=== PATIENT | female | born 1935 | race Caucasian/White ===

== ENCOUNTER 2018-04-04 15:49 | Emergency (ER) | payer MEDICARE ==
[~2018-04-04] VITALS: Ht 167.6 cm; Wt 65.3 kg
[~2018-04-04 15:49] MED LIST: AUGMENTIN 875-1 EAC1 ORAL; NORCO 5-325 TA1 EACH ORAL; PERIDEX 0.12% O15 ML ORAL
[2018-04-04 16:00] VITALS: BP 156/99
[2018-04-04] MEDS ORDERED: Tetanus/Diptheria/Pertussis Vaccine 0.5ml Syr IM ONE (16:30)
[2018-04-04] MEDS ORDERED: Bacitracin Oint UD TOPIC ONE (16:30)
[2018-04-04] MEDS ORDERED: BACITRACIN-P28.35 GM TP (16:37)
--- NOTE | 2018-04-04 16:37 | Emergency Room Report ---
History of Present Illness General Chief Complaint: General Complaint Source: Patient (Jayme Siddiqui) Present Illness HPI 82year-old female patient presents ER complaining of cut on her left thumb. Reports she was any [place]addle when she accidentally cut her thumb. Requesting a tetanus vaccination, states she has not had tetanus vaccination and "years". Reports bleeding well controlled at this time, reports mild bleeding at that time injury. Denies fever, chest pain, shortness breath. Denies radiation of pain. Denies numbness or tingling. (Jayme Siddiqui) Allergies: Coded Allergies: CIPROFLOXACIN (Unverified Allergy, Unknown, 04/04/18) CODEINE (Unverified Allergy, Unknown, 04/04/18) Patient History Past Medical History: see triage record Now: No Reviewed Nursing Documentation: PMH: Agreed; PSxH: Agreed (Jayme Siddiqui) Nursing Documentation-PMH Past Medical History: No History, Except For Hx Hypertension: Yes - HYPERLIPIDEMIA (Jayme Siddiqui) Review of Systems All Other Systems: negative except mentioned in HPI (Jayme Siddiqui) Physical Exam Vital Signs Date Time Temp Pulse Resp B/P (MAP) Pulse Ox O2 Delivery O2 Flow Rate FiO2 04/04/18 15:58 98.1 96 18 156/99 100 Room Air Sp02 EP Interpretation: reviewed, normal General Appearance: well appearing, no apparent distress, alert, GCS 15, non- toxic Head: normocephalic, atraumatic Eyes: bilateral eye normal inspection, bilateral eye PERRL ENT: hearing grossly normal, normal pharynx, no angioedema, normal voice, uvula midline, moist mucus membranes Neck: full range of motion Respiratory: lungs clear, normal breath sounds, no rhonchi, no respiratory distress, no accessory muscle use, no wheezing, speaking full sentences Cardiovascular #1: regular rate, rhythm, no edema Cardiovascular #2: 2+ radial (R), 2+ radial (L) Musculoskeletal: back normal, digits/nails normal, gait/station normal, normal range of motion, non-tender, other - NVI, sensation intact to light touch, cap refill < 2 seconds Neurologic: alert, oriented x3, responsive, motor strength/tone normal, sensory intact Psychiatric: mood/affect normal Skin: abrasions - less than 1 cm linear abrasion on palm of left thumb, superficial, no active bleeding, no surrounding erythema or edema (Jayme Siddiqui) Medical Decision Making [place] Attestation Dr. Evangelista is my supervising Physician whom patient management has been discussed with. (Jayme Siddiqui) Medicare Attestation The history of Faby Galloway has been reviewed and management options for her have been examined and discussed by Harsha Evangelista. I have personally examined and interviewed the patient. (Harsha Evangelista MD) Diagnostic Impression: Primary Impression: Abrasion ER Course Pt presents to ED c/o cut on left thumb. DDX considered but are not limited to laceration, abrasion, contusion, cellulitis. VITAL SIGNS are WNL, patient is afebrile ED INTERVENTIONS: small superficial Abrasion with bleeding well controlled, does not require sutures or wound closure at this time. Will allow to heal by secondary intention. Provided with tetanus vaccination. Wound cleaned and dressed, bacitracin applied, sterile dressing placed. ER precautions given. Follow-up with primary care provider in 2-3 days for wound check. DISCHARGE: Rx provided for Bacitracin At this time pt is stable for d/c to home. Patient resting comfortably, in no acute distress, nontoxic appearing, talking without difficulty. Will provide with patient care instructions and any necessary prescriptions. Patient to take medication as instructed. Care plan and follow-up instructions provided. Work note provided to patient. Patient questions asked and answered. Patient instructed to follow-up with primary care provider for wound check and suture removal. ER precautions given. Patient instructed to return to ER immediately for any new or worsening of symptoms. - Please note that this Emergency Department Report was dictated using [employer] technology software, occasionally this can lead to erroneous entry secondary to interpretation by the dictation equipment. (Jayme Siddiqui) Last Vital Signs Date Time Temp Pulse Resp B/P (MAP) Pulse Ox O2 Delivery O2 Flow Rate FiO2 04/04/18 15:58 98.1 96 18 156/99 100 Room Air Status: improved (Jayme Siddiqui) Disposition: HOME, SELF-CARE Condition: Stable Scripts Bacitracin/Polymyxin B Sulfate (BACITRACIN-POLYMYXIN OINTMENT) 28.35 Gm Oint...g. 1 APPLIC TP BID, #28 GM Prov: Jayme Siddiqui 04/04/18 Patient Instructions: Nonsutured Laceration Care Additional Instructions: Followup with primary care provider in 2-3 days for wound check. Take medications as directed. Patient questions asked and answered. ER precautions given, patient instructed to return to ER immediately for any new or worsening of symptoms. Jayme Siddiqui Apr 04, 2018 16:37 Harsha Evangelista MD Apr 06, 2018 00:00
[2018-04-04 16:45] VITALS: BP 156/99
== END 2018-04-04 16:45 | disposition home or self-care (01) ==
LOC: EMR 16:35
DX: S60.312A Abrasion of left thumb, initial encounter (principal); Z23 Encounter for immunization; W45.8XXA Other foreign body or object entering through skin, initial encounter; Y92.9 Unspecified place or not applicable; Z88.6 Allergy status to analgesic agent; I10 Essential (primary) hypertension; E78.5 Hyperlipidemia, unspecified
CPT/HCPCS: 90471; 90715; 99283

== ENCOUNTER 2019-01-24 06:38 | Emergency (ER) | payer MEDICARE ==
[~2019-01-24] VITALS: Ht 167.6 cm; Wt 62.6 kg
[~2019-01-24 06:38] MED LIST changes: +BACITRACIN-P28.35 GM TP
--- NOTE | 2019-01-24 07:04 | NUR ---
ED Nurse Note: Pt states when she feels like a band is squeezing around her head, different from a headache. ao4. nad. hypertensive 174/ 89
[2019-01-24 07:06] VITALS: BP 174/89
--- NOTE | 2019-01-24 07:17 | NUR ---
ED Nurse Note: iv access established. blood and urine collected; sent down to lab.
--- NOTE | 2019-01-24 07:20 | NUR ---
HAND-OFF: Report given to mayela locke. patient in stable condition. family at bedside. endorsed pending ct.
[2019-01-24 07:28] LABS: APPEARANCE,URINE CLEAR; BASOPHILS % (AUTO) 1.2 % (0.0-2.0); BILIRUBIN, URINE NEGATIVE (NEGATIVE); EOSINOPHILS % (AUTO) 2.8 % (0.0-3.0); GLUCOSE, URINE (UA) NEGATIVE (NEGATIVE); HEMATOCRIT 42.7 % (37.0-47.0); HEMOGLOBIN 14.5 G/DL (12.0-16.0); KETONES,URINE NEGATIVE (NEGATIVE); LEUKOCYTE ESTERASE ,URINE 1+ (NEGATIVE); LYMPHOCYTES % (AUTO) 39.8 % (20.0-45.0); MEAN CORPUSCULAR VOLUME 94 FL (80-99); MONOCYTES % (AUTO) 11.8 % (1.0-10.0); NEUTROPHILS % (AUTO) 44.4 % (45.0-75.0); NITRITE,URINE NEGATIVE (NEGATIVE); PH,URINE 7 (4.5-8.0); PLATELET COUNT 279 K/UL (150-450); PROTEIN,URINE 1+ (NEGATIVE); RED BLOOD COUNT 4.55 M/UL (4.20-5.40); RED CELL DISTRIBUTION WIDTH 10.7 % (11.6-14.8); UROBILINOGEN,URINE NORMAL MG/DL (0.0-1.0); WHITE BLOOD COUNT 5.5 K/UL (4.8-10.8)
[2019-01-24 07:37] LABS: COLOR,URINE YELLOW
[2019-01-24 07:38] VITALS: BP 163/81
--- NOTE | 2019-01-24 07:38 | NUR ---
ED Nurse Note:pt. came back from CT head, placed back on audit practice intern, continue monitor
[2019-01-24 07:39] LABS: ANION GAP 7 mmol/L (5-15); BLOOD UREA NITROGEN 20 mg/dL (7-18); CALCIUM 9.9 MG/DL (8.5-10.1); CARBON DIOXIDE 27 MMOL/L (21-32); CHLORIDE 110 MMOL/L (98-107); CREATININE 1.1 MG/DL (0.55-1.30); POTASSIUM 3.8 MMOL/L (3.5-5.1); SODIUM 144 MMOL/L (136-145)
[2019-01-24 07:52] LABS: ALANINE AMINOTRANSFERASE 18 U/L (12-78); ALBUMIN 3.9 G/DL (3.4-5.0); ALBUMIN/GLOBULIN RATIO 1.2 (1.0-2.7); ALKALINE PHOSPHATASE 72 U/L (46-116); ASPARTATE AMINO TRANSFERASE 20 U/L (15-37); BILIRUBIN,TOTAL 0.7 MG/DL (0.2-1.0); CKMB 5.6 NG/ML (0.0-3.6); CREATINE KINASE 333 U/L (26-308)
--- NOTE | 2019-01-24 08:02 | Emergency Room Report ---
History of Present Illness General Chief Complaint: Pain Source: Patient Present Illness HPI Patient presents emergency department today complaining of a mild headache. She states that is less of a pain but more of a tightness pressure sensation around her head. She denies any trauma. Denies any nausea vomiting diarrhea chills. She states that she has been having the symptoms for a couple of days. States that she has been under a lot of stress lately. Patient has been trying to sell her house has a sick family member. Patient does also have sleeping difficulties. Patient denies any nausea vomiting diarrhea chills. Denies any fever or neck stiffness. Denies any photophobia or any visual changes. Denies any weakness or numbness or tingling throughout her body. Symptoms are noted to be moderate. Patient does have a history of family history of strokes. And was concerned about this. No other modifying factors. No other associated signs and symptoms. No other complaints were noted. Allergies: Coded Allergies: CIPROFLOXACIN (Unverified Allergy, Unknown, 04/04/18) CODEINE (Unverified Allergy, Unknown, 04/04/18) Patient History Past Medical History: HTN Past Surgical History: none Pertinent Family History: none Social History: Denies: smoking, alcohol use, drug use Now: No Reviewed Nursing Documentation: PMH: Agreed; PSxH: Agreed Nursing Documentation-PMH Past Medical History: No History, Except For Hx Hypertension: Yes Review of Systems All Other Systems: negative except mentioned in HPI Physical Exam Vital Signs Date Time Temp Pulse Resp B/P (MAP) Pulse Ox O2 Delivery O2 Flow Rate FiO2 01/24/19 06:45 97.9 72 18 155/89 (111) 96 Room Air Sp02 EP Interpretation: reviewed, normal General Appearance: normal inspection, well appearing, no apparent distress, alert Head: atraumatic Eyes: bilateral eye normal inspection ENT: normal ENT inspection, hearing grossly normal, normal voice Neck: normal inspection, full range of motion, supple, no bony tend Respiratory: normal inspection, lungs clear, normal breath sounds, no respiratory distress, no retraction, no wheezing Cardiovascular #1: regular rate, rhythm, no edema Gastrointestinal: normal inspection, normal bowel sounds, non tender, soft, no guarding, no hernia Genitourinary: no CVA tenderness Musculoskeletal: normal inspection, back normal, normal range of motion Neurologic: normal inspection, alert, responsive, speech normal Psychiatric: normal inspection, judgement/insight normal, mood/affect normal Medical Decision Making Diagnostic Impression: Primary Impression: Headache ER Course Patient presents to the emergency department today complaining of a headache. Differential diagnoses include acute intracranial injury, stroke, atypical headache, migraine headache, sinus infection just to name few. Given the severity of the patient's presentation I felt this is a highly complex patient. This patient required extensive workup. Patient's laboratory work-up was negative. No evidence of acute coronary syndrome. Patient's head CT however show evidence of sinus involvement. There is concern for either a fungal or a bacterial infection as well as possibility of a neoplasm. This was relayed to the patient. Patient was given copies of the lab reports as well as x-ray reports. Patient was advised to follow-up with primary care physician and outpatient ENT. Patient voiced understanding and states that her follow-up with her primary care physician was within 1 week. Patient is advised to return to emergency room for any worsening symptoms and as needed. MIPS: CT scan of the head was performed for a atypical complex headache to rule out any intracranial injury. This was not a patient routine headache and this is not a simple headache. Therefore this required a head CT. Labs Test 01/24/19 07:00 White Blood Count 5.5 K/UL (4.8-10.8) Red Blood Count 4.55 M/UL (4.20-5.40) Hemoglobin 14.5 G/DL (12.0-16.0) Hematocrit 42.7 % (37.0-47.0) Mean Corpuscular Volume 94 FL (80-99) Mean Corpuscular Hemoglobin 31.8 PG (27.0-31.0) Mean Corpuscular Hemoglobin Concent 33.9 G/DL (32.0-36.0) Red Cell Distribution Width 10.7 % (11.6-14.8) Platelet Count 279 K/UL (150-450) Mean Platelet Volume 5.3 FL (6.5-10.1) Neutrophils (%) (Auto) 44.4 % (45.0-75.0) Lymphocytes (%) (Auto) 39.8 % (20.0-45.0) Monocytes (%) (Auto) 11.8 % (1.0-10.0) Eosinophils (%) (Auto) 2.8 % (0.0-3.0) Basophils (%) (Auto) 1.2 % (0.0-2.0) Urine Color Yellow Urine Appearance Clear Urine pH 7 (4.5-8.0) Urine Specific [place] 1.010 (1.005-1.035) Urine Protein 1+ (NEGATIVE) Urine Glucose (UA) Negative (NEGATIVE) Urine Ketones Negative (NEGATIVE) Urine Blood 1+ (NEGATIVE) Urine Nitrite Negative (NEGATIVE) Urine Bilirubin Negative (NEGATIVE) Urine Urobilinogen Normal MG/DL (0.0-1.0) Urine Leukocyte Esterase 1+ (NEGATIVE) Urine RBC 0-2 /HPF (0 - 2) Urine WBC 0-2 /HPF (0 - 2) Urine Squamous Epithelial Cells Few /LPF (NONE/OCC) Urine Amorphous Sediment Few /LPF (NONE) Urine Bacteria Occasional /HPF (NONE) Sodium Level 144 MMOL/L (136-145) Potassium Level 3.8 MMOL/L (3.5-5.1) Chloride Level 110 MMOL/L (98-107) Carbon Dioxide Level 27 MMOL/L (21-32) Anion Gap 7 mmol/L (5-15) Blood Urea Nitrogen 20 mg/dL (7-18) Creatinine 1.1 MG/DL (0.55-1.30) Estimat Glomerular Filtration Rate mL/min (>60) Glucose Level 100 MG/DL (74-106) Calcium Level 9.9 MG/DL (8.5-10.1) Total Bilirubin 0.7 MG/DL (0.2-1.0) Aspartate Amino Transf (AST/SGOT) 20 U/L (15-37) Alanine Aminotransferase (ALT/SGPT) 18 U/L (12-78) Alkaline Phosphatase 72 U/L (46-116) Total Creatine Kinase 333 U/L (26-308) Creatine Kinase MB 5.6 NG/ML (0.0-3.6) Creatine Kinase MB Relative Index 1.6 Troponin I 0.000 ng/mL (0.000-0.056) Total Protein 7.1 G/DL (6.4-8.2) Albumin 3.9 G/DL (3.4-5.0) Globulin 3.2 g/dL Albumin/Globulin Ratio 1.2 (1.0-2.7) EKG Diagnostic Results Rate: normal Rhythm: NSR ST Segments: no acute changes Rhythm Strip Diag. Results EP Interpretation: yes Rate: 64 Rhythm: NSR, no PVC's, no ectopy CT/MRI/US Diagnostic Results CT/MRI/US Diagnostic Results : Imaging Test Ordered: CT scan of the head: Positive sinus involvement. Last Vital Signs Date Time Temp Pulse Resp B/P (MAP) Pulse Ox O2 Delivery O2 Flow Rate FiO2 01/24/19 07:38 97.9 70 18 163/81 96 Room Air Status: improved Disposition: HOME, SELF-CARE Condition: Stable Scripts Amoxicillin* (AMOXIL*) 500 Mg Capsule 500 MG ORAL THREE TIMES A DAY, #30 CAP Prov: Bob Reyes MD 01/24/19 Referrals: NOT CHOSEN IPA/,REFERRING (PCP) Bob Reyes MD Jan 24, 2019 08:02
--- NOTE | 2019-01-24 08:54 | Diagnostic Imaging Report ---
Indications: Headache, head pressure Technique: Spiral acquisitions obtained through the brain. Angled axial and coronal 5 x 5 mm slices were reconstructed. Total dose length product 1354.97 mGycm. CTDI vol(s) 70.38 mGy. Dose reduction achieved using automated exposure control Comparison: None. Findings: There is age-related enlargement of the ventricles and extra axial CSF spaces. There is minimal periventricular deep white matter low-attenuation consistent with chronic microvascular ischemic change. Otherwise normal colbert-white differentiation. No acute intracranial hemorrhage or edema, mass effect, nor midline shift. There is a soft tissue opacity distending a posterior ethmoid air cell on the right. There is also some soft tissue opacity with areas of higher attenuation occupying most of the right maxillary sinus This demonstrates some areas of higher attenuation as well. 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 The orbits are unremarkable. Impression: Soft tissue opacity with areas of higher attenuation distending a posterior ethmoid air cell on the right. This could represent an inflammatory polyp or mucocele. However, the high attenuation elements raises concern for fungal infection. Similar soft tissue with high attenuation elements is also demonstrated within the right maxillary sinus. Given the expansile appearance of the ethmoid abnormality, the possibility of neoplasm should also be considered, although this is deemed less likely given the multifocal nature. Chronic and age-related changes Negative for acute intracranial bleed or mass effect Findings discussed by phone with Dr. Reyes in the emergency room at the time of interpretation The CT scanner at [facility] is accredited by the [employer] and the scans are performed using protocols designed to limit radiation exposure to as low as reasonably achievable to attain images of sufficient resolution adequate for diagnostic evaluation.
[2019-01-24] MEDS ORDERED: AMOXICILLIN500 MG ORAL (08:55)
--- NOTE | 2019-01-24 09:05 | NUR ---
ER DISCHARGE NOTE: Patient is cleared to be discharged per ERMD, pt is aox4, on room air, with stable vital signs. pt was given dc and prescription instructions, pt was able to verbalize understanding, pt id band and iv site removed without complications. pt is able to ambulate with steady gait. pt took all belongings.
[2019-01-24 09:06] VITALS: BP 127/64
[2019-01-24 09:07] VITALS: BP 127/64
--- NOTE | 2019-01-24 17:17 | Cardiology Report ---
APPROVED REPORT EKG Measurement Heart [id number] Normal sinus rhythm Left axis deviation Septal infarct, age undetermined Abnormal ECG
== END 2019-01-24 09:12 | disposition home or self-care (01) ==
LOC: EMR 07:20
DX: R51 Headache (principal); I10 Essential (primary) hypertension; Z88.1 Allergy status to other antibiotic agents; Z88.6 Allergy status to analgesic agent
CPT/HCPCS: 36415; 70450; 80053; 81003; 82550; 82553; 84484; 85025; 93005; 99284